=== PATIENT | female | born 1965 | race Caucasian/White ===

== ENCOUNTER 2023-04-01 10:44 | Outpatient (CLI) | payer OTHER ==
[2023-04-01 11:25] LABS: BASOPHILS % (AUTO) 0.3 % (0.0-2.0); EOSINOPHILS # (AUTO) 0.2 K/uL (0.0-0.4); EOSINOPHILS % (AUTO) 2.3 % (0.0-4.0); HEMATOCRIT 43.1 % (36-48); HEMOGLOBIN 14.3 g/dL (12.0-16.0); LYMPHOCYTES # (AUTO) 2.1 K/uL (1.0-5.5); MEAN CORPUSCULAR HEMOGLOBIN 32 pg (27-31); MEAN CORPUSCULAR HGB CONC 33 % (32-36); MEAN CORPUSCULAR VOLUME 97 fL (79.0-98.0); MONOCYTES # (AUTO) 0.5 K/uL (0.0-1.0); MONOCYTES % (AUTO) 7.5 % (1.7-9.3); NEUTROPHILS # (AUTO) 4.3 K/uL (1.8-7.7); NEUTROPHILS % (AUTO) 59.9 % (40.0-70.0); PLATELET COUNT (AUTO) 260 K/uL (130-430); RED BLOOD CELL COUNT(AUTO) 4.44 MIL/uL (4.2-6.2); RED CELL DISTRIBUTION WIDTH 13.2 % (9.0-15.0); WHITE BLOOD COUNT (AUTO) 7.2 K/uL (4.8-10.8)
[2023-04-01 12:13] LABS: ALBUMIN 3.5 g/dL (3.4-4.8); CALCIUM 8.3 mg/dL (8.4-11.0); CREATININE 0.8 mg/dL (0.55-1.30); POTASSIUM 4.1 mmol/L (3.5-5.1); THYROID STIMULATING HORMONE 3.49 uIu/mL (0.34-4.82); TOTAL BILIRUBIN 0.7 mg/dL (0.0-1.0); TOTAL PROTEIN, SERUM 7.5 g/dL (6.4-8.3)
[2023-04-01 12:17] LABS: HEMOGLOBIN A1C 5.62 % (<5.7)
[2023-04-01 12:28] LABS: ERYTHROCYTE SEDIMENTATION RATE 24 MM/HR (0-20)
[2023-04-02 09:06] LABS: RA LATEX TURBID <10.0 IU/mL (<14.0)
[2023-04-03 13:06] LABS: ANTI NUCLEAR AB WITH REFLEX Negative (Negative)
== END 2023-04-01 18:51 | disposition home or self-care (01) ==
LOC: SLB 10:44
PROVIDERS: ATTEND Internal Medicine
DX: I10 Essential (primary) hypertension (principal); R73.9 Hyperglycemia, unspecified; E78.5 Hyperlipidemia, unspecified; E55.9 Vitamin D deficiency, unspecified; E56.9 Vitamin deficiency, unspecified
CPT/HCPCS: 36415; 80053; 80061; 82306; 82607; 83037; 84443; 85025; 85651-TC; 86038; 86431

== ENCOUNTER 2023-04-14 15:27 | Outpatient (CLI) | payer OTHER | END 2023-04-14 18:29 | disposition home or self-care (01) | LOC: SMA 15:27 | PROVIDERS: ATTEND Internal Medicine | DX: Z12.31 Encounter for screening mammogram for malignant neoplasm of breast (principal) | CPT/HCPCS: 77067 ==

== ENCOUNTER 2023-08-25 06:41 | Day surgery (SDC) | payer OTHER ==
[~2023-08-25] VITALS: Ht 170.2 cm; Wt 108.9 kg
[2023-08-25] MEDS ORDERED: MEPERIDINE 100 MG INJ. 100 MG/ML VIAL ONE (06:48)
[2023-08-25] MEDS ORDERED: MIDAZOLAM HCL 5 MG/5 ML VIAL ONE ×2 (06:48→08:19)
[2023-08-25] MEDS ORDERED: SIMETHICONE 40 MG/0.6 ML ML ONE (06:48)
[2023-08-25] MEDS ORDERED: BENZOCAINE 20% 0.5mL UD SPRAY MM ONE (07:54)
[2023-08-25] MEDS ORDERED: DIPHENHYDRAMINE INJ 50 MG/ML VIAL ONE (07:56)
[2023-08-25 13:21] VITALS: BP_SYST 130; PULSE 65; RESP 16; TEMP 97.1; O2SAT 99
== END 2023-08-25 09:18 | disposition home or self-care (01) ==
LOC: SDS 06:41 → SMU 06:42 → SDS 09:18
PROVIDERS: ATTEND Student in an Organized Health Care Education/Training Program
DX: R06.02 Shortness of breath (principal); K29.50 Unspecified chronic gastritis without bleeding; K20.90 Esophagitis, unspecified without bleeding; E78.00 Pure hypercholesterolemia, unspecified; K58.9 Irritable bowel syndrome, unspecified; R05.9 Cough, unspecified; Z79.899 Other long term (current) drug therapy
CPT/HCPCS: 43239; 99152; 88305; 88312; 88313; G0378; J1200; J2250; J2175

== ENCOUNTER 2023-11-03 07:54 | Day surgery (SDC) | payer OTHER ==
[~2023-11-03] VITALS: Ht 170.2 cm; Wt 108.9 kg
[2023-11-03] MEDS ORDERED: BENZOCAINE 20% 0.5mL UD SPRAY MM ONE ×2 (08:15→10:23)
[2023-11-03] MEDS ORDERED: MEPERIDINE 100 MG INJ. 100 MG/ML VIAL ONE (08:16)
[2023-11-03] MEDS ORDERED: MIDAZOLAM HCL 5 MG/5 ML VIAL ONE ×2 (08:16→10:40)
[2023-11-03 09:07] VITALS: O2SAT 97
[2023-11-03] MEDS ORDERED: DIPHENHYDRAMINE INJ 50 MG/ML VIAL ONE (10:21)
[2023-11-03 13:01] VITALS: BP_SYST 110; PULSE 78; RESP 13; TEMP 97.7
== END 2023-11-03 11:30 | disposition home or self-care (01) ==
LOC: SDS 07:54 → SMU 07:56 → SDS 11:30
PROVIDERS: ATTEND Student in an Organized Health Care Education/Training Program
DX: K20.90 Esophagitis, unspecified without bleeding (principal); K29.50 Unspecified chronic gastritis without bleeding; K31.7 Polyp of stomach and duodenum; E78.00 Pure hypercholesterolemia, unspecified; Z98.890 Other specified postprocedural states
CPT/HCPCS: 43239; 99152; 88305; 88312; 88313; G0378; J1200; J2250; J2175